=== PATIENT | male | born 1965 | race Asian ===

== ENCOUNTER 2021-09-20 08:24 | Emergency (ER) | payer OTHER ==
[~2021-09-20] VITALS: Ht 177.8 cm; Wt 92.1 kg
[2021-09-20 08:36] VITALS: TEMP 97
[2021-09-20 09:00] LABS: PLATELET COUNT 233 K/uL (142-355)
[2021-09-20 09:11] LABS: POTASSIUM 3.7 mmol/L (3.6-5.2)
[2021-09-20 09:18] LABS: PARTIAL THROMBOPLASTIN TIME 26.4 SECONDS (24.5-33.6)
[2021-09-20 10:21] VITALS: BP 138/78
== END 2021-09-20 10:24 | disposition home or self-care (01) ==
LOC: ED 08:24
PROVIDERS: Hospitalist
DX: S16.1XXA Strain of muscle, fascia and tendon at neck level, initial encounter (principal); N18.9 Chronic kidney disease, unspecified; I67.89 Other cerebrovascular disease; V47.5XXA Car driver injured in collision with fixed or stationary object in traffic accident, initial encounter; Y92.89 Other specified places as the place of occurrence of the external cause
CPT/HCPCS: 80048; 80320; 85027; 85610; 85730; 99283